=== PATIENT | female | born 1995 | race Caucasian/White ===

== ENCOUNTER 2017-04-21 14:54 | Emergency (ER) | payer MEDICAID, OTHER ==
[~2017-04-21] VITALS: Ht 162.6 cm; Wt 70.5 kg
[2017-04-21 15:35] VITALS: BP 120/80
[2017-04-21] MEDS ORDERED: IBUPROFEN 800 MG TABLET PO ONE (16:15)
== END 2017-04-21 17:25 | disposition home or self-care (01) ==
LOC: EMS 14:58
DX: M79.671 Pain in right foot (principal); M79.89 Other specified soft tissue disorders
CPT/HCPCS: 29515; 99284